=== PATIENT | female | born 1960 | race Caucasian/White ===

== ENCOUNTER 2018-09-05 17:14 | Inpatient (IN) | payer OTHER ==
[~2018-09-05] VITALS: Ht 160 cm; Wt 45.6 kg
[~2018-09-05 17:14] MED LIST: ABILIFY30 MG PO; CIPRO250 M1 PO; KEFLEX500 MG PO; NEURONTIN 300300 M1 PO; NOHOMEMEDICATIONS; REMERON30 MG PO; SILVADENE20 GM TP; TUSNEL LIQUID3840 ML PO; VENTOLIN HFA 1818 GM INH; WELLBUTRIN 100100 MG NG
[2018-09-05 18:57] LABS: ABSOLUTE NEUTROPHILS 7.9 thou/uL (1.4-8.2); BASOPHILS 0.6 % (0.0-2.0); HEMOGLOBIN 13.9 gm/dL (12.0-15.0); LYMPHOCYTES 20.8 % (24.0-44.0); MCH 30.4 pg (26.0-34.0); MCHC 33.8 g/dL (28.0-37.0); MCV 90.1 fL (80.0-100.0); MONOCYTES 11.2 % (1.0-8.0); PLATELET COUNT 352 thou/uL (150-400); POLYS 65.4 % (36.0-66.0); RBC 4.56 mil/uL (4.20-5.00); RDW 13.3 % (10.5-14.5)
[2018-09-05 19:03] LABS: URINE BLOOD TRACE (Negative); URINE CLARITY CLEAR; URINE COLOR YELLOW; URINE GLUCOSE-RANDOM* NEGATIVE (Negative); URINE KETONES 3+ (Negative); URINE LEUKOCYTES 1+ (Negative); URINE NITRITE NEGATIVE (Negative); URINE PROTEIN (DIPSTICK) TRACE (Negative)
[2018-09-05 19:05] LABS: ICTOTEST (BILI CONFIRMATORY) Negative (Negative); URINE BILIRUBIN NEGATIVE (Negative)
[2018-09-05 19:11] LABS: AMP/METHAMP Negative (Negative); BARBITURATES Negative (Negative); BENZODIAZEPINES Negative (Negative); COCAINE Negative (Negative); METHADONE Negative (Negative); OPIATES Negative (Negative); PCP Negative (Negative)
[2018-09-05 19:13] LABS: ALBUMIN 3.7 g/dL (3.4-5.0); ANION GAP 12 mmol/L (7-16); BUN 19 mg/dL (7-18); CALCIUM 9.3 mg/dL (8.5-10.1); CHLORIDE 99 mmol/L (98-107); CO2 25 mmol/L (21-32); CREATININE 0.9 mg/dL (0.6-1.0); GLUCOSE 98 mg/dL (74-106); SALICYLATE < 2.8 mg/dL (2.8-20.0); SGOT 18 U/L (15-37); SGPT 19 U/L (30-65); SODIUM 136 mmol/L (136-145); TOTAL BILIRUBIN 0.6 mg/dL (<0.1-1.0); TOTAL PROTEIN 7.6 g/dL (6.4-8.2)
[2018-09-05 19:13] LABS: BACTERIA None Seen /HPF (None Seen); CASTS None Seen /LPF (None Seen); CRYSTALS None Seen /LPF (None Seen); SQUAMOUS 0-3 Few /LPF (0-3); URINE RBC 3-10 Few /HPF (0-2); URINE WBC >25 Many /HPF (0-5)
[2018-09-05 19:22] LABS: POTASSIUM 2.9 mmol/L (3.5-5.1)
[2018-09-05 20:30] VITALS: BP 102/45
[2018-09-05 22:12] LABS: TSH 0.743 uIU/mL (0.358-3.740)
--- NOTE | 2018-09-05 22:12 | NUR ---
ADMIT: ED ADMIT FROM [facility]. PHYSICALLY COMBATIVE WITH STAFF AND RESIDENTS, KICKING, YELLING, HITTING, CURSING. HX SI, DEMENTIA, DEPRESSION, ANXIETY, FIBROMYALGIA, GLAUCOMA, ETOH AND MARIJUANA USE. DPOA ENACTED BY AND GAVE VERBAL CONSENT. PT HAS CONFUSION. PT WAS NONCOMPLIANT AND AGGRESSIVE IN ED, IM INJECTION GEODON GIVEN, SECURITY PRESENT DURING CARES. PT RECEIVED PO POTASSIUM R/T LOW LEVEL 2.9. UPON ARRIVAL TO UNIT PT ANXIOUS, COOPERATIVE, REQUESTED FOOD AND PROVIDED. DENIES SI/HI. DR BALDWIN CALLED FOR ORDER CLARIFICATION. HOSPITALIST NOTIFIED OF ADMIT. PT ORIENTED TO ROOM. PT REFUSED SKIN CHECK BUT DENIED ANY SKIN BREAKDOWN. WELCOME PACKET PROVIDED TO PT. PT STATED SHE WOULD LIKE TO MOVE TO [facility] TO BE WITH FAMILY. PT EDUCATED TO CALL FOR ASSISTANCE WITH AMBULATION SINCE RECEIVED MEDICATION, PT REPORTS SHE IS INDEPENDENT WITH AMBULATION. MANY PT BELONGINGS IN LOCKER.
[2018-09-06] MEDS ORDERED: ACETAZOLAMIDE500 MG PO (02:48)
[2018-09-06] MEDS ORDERED: ARICEPT 5 MG TAB5 MG PO (02:49)
[2018-09-06] MEDS ORDERED: ALPHAGAN P5 ML (02:49)
[2018-09-06] MEDS ORDERED: COSOPT PF EYE1 EACH OP (02:50)
[2018-09-06] MEDS ORDERED: PROZAC20 MG PO (02:51)
[2018-09-06] MEDS ORDERED: XALATAN2.5 ML OPHTHALMIC (02:51)
[2018-09-06] MEDS ORDERED: PREDNISOLONE ACE5 ML OPHTHALMIC (02:52)
[2018-09-06] MEDS ORDERED: VITAMIN B-1100 M1 PO (02:53)
[2018-09-06] MEDS ORDERED: VITAMIN D5000 UNIT PO (02:54)
[2018-09-06] MEDS ORDERED: TYLENOL325 MG PO (02:54)
[2018-09-06] MEDS ORDERED: IBUPROFEN 400400 M2 PO (02:55)
[2018-09-06] MEDS ORDERED: VISTARIL 25 MG25 M1 PO (02:55)
[2018-09-06] MEDS ORDERED: MELATONIN3 MG PO (02:56)
[2018-09-06 07:46] VITALS: BP 95/48
--- NOTE | 2018-09-06 09:18 | NUR ---
ASSUMED CARE AT 0700 THIS MORNING. PT. REMAINED IN BED, REFUSING TO GET UP FOR BREAKFAST. WHEN THIS RUBBER COVERING MACHINE OPERATOR ATTEMPTED TO GIVE THE PT. MEDICATIONS SHE SAID, " THIS IS BULLSHIT, IM NOT TAKING NONE OF THE CRAP!". SHE THEN LAYED DOWN AND WENT BACK TO SLEEP.
[2018-09-06 10:24] VITALS: BP 95/48
--- NOTE | 2018-09-06 16:55 | NUR ---
SW schedule family meeting with pt friend on September.
--- NOTE | 2018-09-06 16:58 | EKG ---
[place] [address] [employer] [employer] [address] ELECTROCARDIOGRAM REPORT Name: TALHA AMARO Room #: 52- ADM IN M.R.#: [id number] ������������������ Admission: 09/05/18 ������������������ Attend Phys: Jacinto Diaz DO Discharge: ������������������ Date of : 56 Report #: [id number] ����������������������������������������������������������������� [id number] THIS REPORT FOR: //name// [facility] Test Date: 2018-09-06 Test Time: 09:34:31 Pat Name: TALHA AMARO Department: Room: [facility] Gender: F Top Edge Beveler: Emi ROBLEDO : 1960 Requested By: Jacinto Diaz Order Number: [id number] MD: Henrry Frazier Measurements Intervals [place] Rate: 71 P: 36 OR: 108 QRS: 52 QRSD: 88 T: 58 QT: 449 QTc: 488 Interpretive Statements Sinus rhythm Short OR interval Nonspecific ST and T wave abnormality Borderline prolonged QT interval No previous ECG available for comparison Electronically Signed On 09-06-2018 16:58:09 CDT by Henrry Frazier [email or web address] ��������������������������������������������� <ELECTRONICALLY SIGNED> ���������������������������������������� By: Henrry Frazier MD, [facility] ��������������������������������������������� 09/06/18 1658 Henrry Frazier MD, [facility] /EPI
[2018-09-06 19:35] VITALS: BP 111/51
[2018-09-06 20:00] VITALS: BP 111/51
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
--- NOTE | 2018-09-06 21:48 | NUR ---
Patient sleeping in bed upon start of shift. Patient agitated and irritable. Patient alert and oriented to person only. When asked location, time, situation, she would yell "no" at this nurse. Patient lethargic but able to wake with verbal and tactile stimuli. Patient allowed nurse to complete assessment. Any question that was asked, patient would yell "no". Patient did curse for nurse to leave her room. Patient was presented with PO medications. Patient educated on medication and use. Patient took pills one at a time whole. Patient was frustrated, but did take them. Denied pain or discomfort. Patient asked if she wanted her eye drops Latanoprost, for her glaucoma. Patient stated "no, I wish you would just fucking leave". Bed is in lowest position, yellow non-skid socks worn. 12 minute checks being completed.
[2018-09-07 06:26] LABS: HEMATOCRIT 40.9 % (37.0-47.0); HEMOGLOBIN 13.4 gm/dL (12.0-15.0); MCH 29.8 pg (26.0-34.0); MCHC 32.6 g/dL (28.0-37.0); MCV 91.3 fL (80.0-100.0); RBC 4.48 mil/uL (4.20-5.00); RDW 13.8 % (10.5-14.5); WBC 9.8 thou/uL (4.0-11.0)
[2018-09-07 06:55] LABS: CALCIUM 9.2 mg/dL (8.5-10.1); CREATININE 0.7 mg/dL (0.6-1.0); MAGNESIUM 1.9 mg/dL (1.8-2.4); POTASSIUM 3.5 mmol/L (3.5-5.1)
[2018-09-07 07:37] VITALS: BP 110/47
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
--- NOTE | 2018-09-07 16:07 | NUR ---
WITHDRAWN TO ROOM THIS AM-REFUSES TO COME OUT FOR BREAKFAST DESPITE MULTIPLE PROMPTS -STATING "I NEED TO SLEEP" OR "I DON'T FEEL WELL" OR WILL STATE SHE IS COMING AND THEN NOT GET UP. DID TAKE AM MEDICATIONS PO,INITALLY REFUSED EYE DROPS BUT LATER DID ALLOW-ROOM LOCK OUT ORDERED BY MD AT 1100 AND AT 1130 INFORMED OF THIS- DID RELUCTANTLY [facility]LOW STAFF TO ASSIST IN AMBULATING TO DAYROOM. ATE LUNCH,ATTENDED GROUPS-LIMITED VERBAL RESPONSES. LABILE MOOD INITALLY SHE WAS SMILING AND MAKING JOKES AT 1400 IRRITABLE,SARCASTIC AND REFUSING TO PARTICIPATE. DOES REPORT LEG PAIN RATED A 7 ON 1-10 SCALE-STATES HAS DAILY PAIN R/T FIBROMYALGIA. IBUPROFEN 400MG GIVEN PO PRN AT 0900 FOR ABOVE REPORTED,REPORTS LITTLE RESPONSE TO IBUFROFEN -TYLENOL 625MG GIVEN PO PRN AT 1300 FOR LEG PAIN RATED AN 8 ON 1-10 SCALE. AGAIN REPORTS NO RESPONSE-MD NOTIFIED AND ORDERS RECEIVED FOR NEURONTIN.
[2018-09-07 19:36] VITALS: BP 93/59
--- NOTE | 2018-09-07 20:31 | NUR ---
PT ASKED IF NURSE NEW PLAN REGARDING LOS. PT STATED HER INTENTION IS TO LIVE WITH A FRIEND AND THEN MOVE TO [facility]. DISCUSSED PT NEEDING TO HAVE A CONVERSATION [facility] TREATMENT TEAM REGARDING EXPECTED BEHAVIORS IN REGARDS TO NOT HARMING SELF OR OTHERS. PT STATED SHE IS AN ADULT AND THAT IS HER BUSINESS. PT DID NOT HAVE EYE CONTACT WITH THE ABOVE CONVERSATION. PT DID HAVE EYE CONTACT WITH CONVERSATION RE MEDICATIONS AND THERE PURPOSE AND HS SNACK. PT WAS IN DAY ROOM UNTIL 1930, THEN SHE HAS BEEN IN HER BED READING A PUZZLE BOOK.
--- NOTE | 2018-09-08 09:09 | NUR ---
ASSUMED PATIENT CARE AT 0700, PATIENT STILL IN BED AT THAT TIME. AWAKENED BY THIS NURSE, WHO RESPONDED THAT SHE DID NOT EAT BREAKFAST. AGREED THAT SHE WOULD LIKE COFFEE, SHORT TIME LATER DRESSED SELF AND PRESNETED TO DR FOR BREAKFAST. IRRITABLE MOOD, ATTENDING GROUP AT THIS TIME. COMPLIANT WITH MEDICATIONS.
--- NOTE | 2018-09-08 16:04 | NUR ---
PATIENT ASKS REPETITIVE QUESTIONS DURING 1:1 SESSION WITH THIS NURSE, i.e., WHY AM I HERE, WHO PLACED ME HERE, IS THERE A "4 DAY HOLD." ALSO QUESTIONED DR. BALDWIN AND ISABELLE Eastman. PATIENT DOES NOT ACCEPT RESPONSES FROM STAFF, INSTEAD VERBALIZES IRRITATED RESPONSE. SITTING IN DR, ALTERNATELY WORKING ON CROSSWORD PUZZLES AND WATCHING T.V. CONTINUE TO MONITOR, OFFER SUPPORT AND ENCOURAGEMENT.
[2018-09-08 18:14] VITALS: BP 122/74
--- NOTE | 2018-09-08 20:54 | NUR ---
NURSES NOTE - ASSUMED CARE AT APPROXIMATELY 1900, PATIENT WAS IRRITABLE AND AGITATED DURING BEGINNING OF SHIFT. SHE REPEATEDLY ASKED SEVERAL TIMES WHY SHE WAS ADMITTED AND WHEN SHE WAS GOING TO DISCHARGE FROM UNIT AND WHAT WAS WRITTEN ABOUT HER IN HER MEDICAL RECORD AND SHE DESERVES THE RIGHT TO SEE IT.
[2018-09-09 07:20] VITALS: BP 123/53
--- NOTE | 2018-09-09 13:10 | NUR ---
PATIENT HAS BEEN UP ON UNIT. APPETITE GOOD. LABILE AT TIMES - MEDICATION COMPLIANT. DENIES ANY S/I OR H/I OR HALLUCINATIONS. RELUCTANT AND SUSPICIOUS OF MEDICATIONS. AFFECT BLUNTED AT TIMES AND MOOD WITHDRAWN.
[2018-09-09 19:05] VITALS: BP 100/52
--- NOTE | 2018-09-09 20:08 | NUR ---
ASSUMED CARE @ 19:00, SITTING AT A TABLE IN DAYROOM, COLORING ON ADULT COLORING BOOK PAGES. A&OX3 CONFUSED REGARDING REASON FOR HOSPITALIZATION, ASKING REPEATEDLY TO BE DISCHARGED. HRRR, LUNGS DIMINISHED, ABD SOUNDS NORMOACTIVE X 4 Q REPORTS BM YESTERDAY. WILL CONTINUE TO MONITOR.
--- NOTE | 2018-09-09 21:26 | NUR ---
PT ACCEPTED 2100 MEDICATIONS WITHOUT ANY APARENT PROBLEM, ALL THE WHILE REPORTING THAT THE ONLY PILLS THAT SHE WANTS TO TAKE IS ALCOHOL AND DRUG ABUSE FOR FUN. WANTS TO CONTINUE DRINKING COFFEE ALL NIGHT. OFFERED EDUCATION REGARDING MELATONIN FOR SLEEP. WILL CONTINUE TO MONITOR Q 12 MINUTE FOR PT SAFETY.
[2018-09-10 02:44] VITALS: BP 100/52
--- NOTE | 2018-09-10 06:04 | NUR ---
SLEPT WELL, TOTAL OF 7.8 HOURS SLEEP.
[2018-09-10 07:00] VITALS: BP 118/72
[2018-09-10 07:30] VITALS: BP 118/72
--- NOTE | 2018-09-10 08:52 | NUR ---
PT AWAKE DRINKING COFFEE. PT IN POSITIVE SPIRITS TODAY. PT LUNGS CLEAR. PT COMPLIANT WITH TAKING MEDS. PT STATED THAT IT DOESN'T MATTER SHE WON'T TAKE THESE MEDS WHEN SHE GETS OUT, SO WHY GO THROUGH WITHDRAWL. PT UP AD MONALISA. PT STATED THAT SHE HAS PAIN ALL OVER OF 3 ON 1-10 SCALE FROM FIBROMYALGIA.
--- NOTE | 2018-09-10 10:00 | NUR ---
SITTING WITH PATIENT WITH A PUZZLE. PT STATED SHE DRINKS IN ORDER TO HELP WITH THE PAIN DUE TO THE FIBROMYALGIA AND SHE LIKES THE TASTE OF RED WINE.
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
[2018-09-10 20:00] VITALS: BP 106/54
--- NOTE | 2018-09-11 02:27 | NUR ---
Assumed care of patient at 1900: Patient sitting in day room upon start of shift. Patient being intrusive and disrespectful to another patient. Patient required re-direction x2. Patient ate snack. Took medications whole without difficulty. Patient asked what each medication was, what it was for, side effects, etc. Patient alert and oriented x4. Patient denies SI/HI/AH/VH. Patient had difficulty going to sleep this shift. Patient offered Melatonin PRN. Patient made the statemtent that all the medications provided to her are placebos, her mom had dementia so she knows they are just placebos. Patient declined the Melatonin. Patient did report pain to her bilateral lower extremities rated 7/10. Patient was offered PRN Tylenol. Patient accepted and took Tylenol without difficulty. At follow up, patient reported that her pain was rated the same and the Tylenol was not helpful. Patient then asked if she could have something with codeine in it. Patient was asked what other medication has been helpful in managing her pain. Patient stated that plain Aspirin helps her pain more than Tylenol. Call placed to MARIBETH Kramer. MARIBETH Kramer, had asked if patient would be interested in receiving a dose of IM Toradol. Patient was asked and she stated that she just wanted Aspirin, she didn't know what Toradol was. Order obtained for Aspirin 81mg po 1x dose. Patient argumentative with staff. Patient stated that she was going to be signing out AMA. It was explained that her DPOA signed her admission paperwork. Patient continued to argue. Patient sarcastic, condescending to others. Patient then stated she was hungry. Patient provided sandwich, chips, crackers and ate 100%. Patient able to lay down and rest quietly after eating fairly large snack. Patient asleep at follow up after receiving PRN Aspirin.
[2018-09-11 07:40] VITALS: BP 117/51
--- NOTE | 2018-09-11 10:08 | NUR ---
Date of Admission: 09/05/18 Date of Activity Therapy Assessment:09/08/2018 Activity Goal:Pt will attend two groups per day. Initial Goal:Pt will participate in two Recreation Therapy groups per day, until discharge. Weekly progress towards goal:Pt did not achieve goal. Group participation level: Minimal Behaviors observed: Pt is obsevered being rude and demanding to her peers. Pt talked down to peers, at times. Pt struggles with appropriate social skill in the milieu. Pt becomes distracted by the milieu environment during groups and 1:1 sessions. Pt doesn't appear to enjoy groups but will sit passively, when encouraged. Pt is irratatable towards staff. Plan: No change towards goal
--- NOTE | 2018-09-11 10:57 | NUR ---
SARCASTIC AND IRRITABLE THIS AM. DURING FREE TIME ASKED ABOUT GETTING REMOTE TO CHANGE TV CHANNEL-INSTRUCTED NOT TO CHOOSE ANYTHING TO BLOODY, INTENSE OR SCARY IN RESPECT OF MILLEU AND PEERS WITH A/V HALLUCINATIONS/PSYCHOSIS ETC. TALHA IMMEDIATLY PUT ON ALIENS AND WAS RESISITVE AND SULLEN WHEN ASKED TO RECONSIDER STATING "I WILL TALK TO ADMINISTRATION ABOUT THAT"
[2018-09-11 19:17] VITALS: BP 111/60
--- NOTE | 2018-09-11 22:56 | NUR ---
Patient alert and oriented x3, confusion noted on situation. Patient intrusive and sarcastic with staff. Patient antagonizing another peer this shift. Required frequent re-direction. Patient is easily agitated and irritable. Patient poses a question and argument for anything that happened this evening. Patient took medications whole without difficulty. Patient asked multiple questions on medication and education provided. Patient ate 100% snack provided then requested more to eat at approximately 2200. Patient reports chronic pain rated 6/10 to her arms and legs, aching/dull, due to fibromyalgia. Patient stated it has been "a good day for pain". PRN medication offered. Patient declined and stated she was feeling "pretty good". Patient reported that she is concerned about where she is going to live, housing, relationships and moving back to [place]. Patient went to bed approximately 2300. Sitting in her room quietly at this time.
[2018-09-12 07:20] VITALS: BP 144/61
--- NOTE | 2018-09-12 10:30 | NUR ---
Assess due to low BMI 17.8. Admit to H unit for aggitation and hypokalemia. K now wnl. On vitamin D and thiamine. Initial wt reported as 120 lb, however pt states her usual wt is 99 lb; current wt is 100 lb. No wasting is apparent. Ambulates the halls. Eating 100% of meals. Weigh weekly. Low nutrition risk
--- NOTE | 2018-09-12 11:29 | NUR ---
FULL RANGE AFFECT SO FAR THIS AM-VISIBKE IN [facility]-ATTENDING GROUP AND OFFERS FEEDBACK WITH MINIMAL PROMPTING. SUPERFICIAL,SLIGHTLY GUARDED DURING 1;1 STATING"WHY DO YOU HAVE TO ASKE THESE QUESTIONS EVERYDAY ISN'T IT WRITTEN IN MY CHART" SOME PSYCHOMOTOR AGITATIOIN NOTED IN FORM OF REPEATDLTY TAPPING FOOD,FREQUENT POSITION CHANGES- STAYS ON TASK FOR APPROX 5-10 MINUTES BEFORE MOVING ON TO NEW ACTIVITY. OCCASSIONAL NEGATIVE COMMENT RE UNIT RULES/REGULATIONS BUT NO ACUTE VERBAL/PHYSICAL AGGRESSION/AGITATION SO FAR THIS SHIFT
--- NOTE | 2018-09-12 11:58 | NUR ---
JULIAN sent d/c documentation to [facility]. JULIAN notified the NF that pt will be d/c on September 13, 2018. JULIAN will contact Esperanza to [facility] to confirm to recieve documentation. JULIAN will follow-up with pt upon d/c.
--- NOTE | 2018-09-12 16:24 | NUR ---
JULIAN left a voicemail with Esperanza from [facility]. JULIAN provided contact information, and requested a call back. JULIAN will follow-up with the NF on tomorrow.
[2018-09-12 19:30] VITALS: BP 125/61
[2018-09-12 21:24] VITALS: BP 125/61
[2018-09-13 08:58] VITALS: BP 128/89
--- NOTE | 2018-09-13 09:02 | NUR ---
JULIAN spoke with Ro at [facility]. Ro mention that she will be setting up transportation at 11:00am. Ro mention that she will return call to for confirmation.
--- NOTE | 2018-09-13 12:04 | NUR ---
ASSUMED PATIENT CARE AT 0715. PATIENT UP FOR BREAKFAST, ATE 100% OF BREAKFAST. PARTIPATING IN GROUP; NO ISSUES WITH MEMORY DISAPLAYED TO DATE THIS SHIFT. DISCHARGE PLANS FOR TODAY TO FACILITY PRIOR TO ADMISSION--[facility].
--- NOTE | 2018-09-13 12:17 | NUR ---
Patient Name: TALHA AMARO Admission Date: 09/05/18 DISCHARGE PLAN: Pt will be d/c to NF. Care Assessment: Pt was assessed by Dr. Diaz, and diagnosed with Major Neurocognitive Disorder. Level II Assessment: None Transportation: Pt will be transported by [facility]. Special Instructions/Notes: Pt will need to be place in a NF. DISCHARGE TO FACILITY: Nursing Facility Facility: [facility]. Fax: Address: [address] [place] [id number] Contact Name: Madalyn PCP: JAZMINE doctor Psychiatrist: JAZMINE Psychiatrist
[2018-09-13] MEDS ORDERED: ZYPREXA 5 MG TAB5 M2 PO (13:12)
[2018-09-13] MEDS ORDERED: PROZAC 10 MG CA10 MG PO (13:12)
[2018-09-13] MEDS ORDERED: BRIMONIDINE TART5 ML OPHTHALMIC (13:14)
[2018-09-13] MEDS ORDERED: AZOPT OPHTH1 %/10 M1 OPHTHALMIC (13:15)
--- NOTE | 2018-09-13 14:35 | NUR ---
PATIENT PICKED UP BY [facility] AT THIS TIME: 1435. ACCOMPANIED OUT BY ENDS BREAKAGE CLERK AND DR. BALDWIN TO TRANSPORT VEHICLE. NURSING FROM [facility] HAS NOT RETURNED CALL FOR REPORT AT THE TIME OF DISCHARGE.
--- NOTE | 2018-09-14 09:44 | D ---
[facility] [address] [address] DISCHARGE SUMMARY Name: TALHA AMARO Room #: 521B-B DIS IN M.R.#: [id number] Admission: 09/05/18 ������������������ Attend Phys: Jacinto Diaz DO Discharge: 09/13/18 ������������������ Date of : 56 Report #: [id number] THIS REPORT FOR: //name// CC: Jacinto Diaz Sin Akkulugari DATE OF SERVICE: 09/13/2018 ATTENDING PHYSICIAN: Jacinto Diaz DO METAL CONTAINER MAKER AT THE TIME OF DISCHARGE: Rufus Murguia M.D. DISCHARGE DIAGNOSES: As follows: 1. Major neurocognitive disorder, likely due to multiple etiologies with behavioral disturbance, improved. 2. Substance use disorder for alcohol, severe, historic. 3. Medical comorbidities were quite a few and include: a. Left visual eye deficits. b. History of glaucoma, cannot exclude macular degeneration. The patient will be given an appointment at the [facility]. c. Fibromyalgia, by history. DISCHARGE PLAN: Discharged to the [facility] facility. ACTIVITY LEVEL: As tolerated, will require 24/7 care. Absolutely no alcohol or illicit drugs. The patient is a smoker. Facility should be advised that the patient's smoking will decrease the effective dose of the olanzapine that the patient is getting and the patient's DPOA, Mr. Mcgraw, is aware of that. DISCHARGE MEDICATIONS: Fluoxetine 10 mg p.o. daily for depression, this was reduced from the dose on admission; olanzapine 10 mg p.o. b.i.d. for mood stabilization; brimonidine tartrate 5 mL drops 1 drop t.i.d. to affected eye; brinzolamide ophthalmic one drop t.i.d. to affected eye; donepezil 10 mg p.o. at bedtime for cognitive enhancement continues; latanoprost 1 drop ophthalmic at bedtime for glaucoma; cholecalciferol 50,000 units weekly; ibuprofen 400 q. 6 hours p.r.n. for pain 1-3; melatonin 3 mg p.o. at bedtime p.r.n. for insomnia. The patient's general medical and psychiatric care will be handled at the [facility] facility. LABORATORY THIS ADMISSION: Hematology done on 09/05/2018 and 09/07/2018, H and H was within normal limits at 13.4, 40.9, white count 9.8, platelet count 311. Chemistries are within normal limits except for a GFR of 85, sodium 143, potassium 3.5, chloride 107, carbon dioxide 25, BUN 16, creatinine 0.7. Urinalysis showed trace blood, 3+ ketones, trace protein. The patient was treated with cephalexin for her UTI. Micro came back with an E. coli-positive [facility] [address] [place] [address] DISCHARGE SUMMARY Name: TALHA AMARO Room #: 521B-B [facility] IN M.R.#: [id number] Admission: 09/05/18 ������������������ Attend Phys: Jacinto Diaz, Discharge: 09/13/18 ������������������ Date of : 56 Report #: [id number] culture that was sensitive to all antibiotics. REASON FOR ADMISSION: The patient was attempting to elope from the facility, and was agitated and irritable. HOSPITAL COURSE: The patient was admitted to the Geriatric Psychiatry Unit and she was started on olanzapine 5 mg b.i.d. Her DPOA was enacted early on. There was quite a bit of confrontation, this did decrease. The patient did permit increasing the olanzapine to 10 mg b.i.d. Fortunately or unfortunately, the olanzapine was quite efficacious for this patient. It has accelerated metabolism with hydrocarbons from cigarettes. Also, in this patient it will be a gradual dose reduction, likely occurring in a nursing facility. I advised her DPOA to be aware of this fact. MUSCULOSKELETAL: Normal gait and station. MENTAL STATUS EXAMINATION: This is a well-developed, well-nourished female, poor dentition, appearing older than stated age. Attention limited. Concentration limited. Speech normal in rate. Thought process is linear and goal directed. Thought content focused on discharge. No psychomotor agitation. No psychomotor retardation. Denied auditory, visual, or tactile hallucinations. Insight limited. Judgment limited. Fund of knowledge below average. Prognosis for this patient is guarded given her limitations of support, history of relapse on alcohol, and her dealing with the effects of it. An EKG was done on 09/05/2018 as a precaution due to antipsychotics, QTC was 48, QT 449, and rate 71, read by Dr. Frazier. ��������������������������������������������� <ELECTRONICALLY SIGNED> ���������������������������������������� By: Jacinto Diaz DO ��������������������������������������������� 09/14/18 0944 [id number] 0010 Jacinto Diaz DO /nt
== END 2018-09-13 14:20 | DRG 884 ==
LOC: ER 17:14 → EROBS 20:10 → SBH 20:10
PROVIDERS: Nurse Practitioner Family; Physician Assistant; ADMIT Psychiatry & Neurology Psychiatry
DX: F01.51 Vascular dementia, unspecified severity, with behavioral disturbance (principal); N39.0 Urinary tract infection, site not specified; F32.9 Major depressive disorder, single episode, unspecified; R45.1 Restlessness and agitation; E87.6 Hypokalemia; F41.9 Anxiety disorder, unspecified; H40.9 Unspecified glaucoma; M79.7 Fibromyalgia; E53.8 Deficiency of other specified B group vitamins; F02.80 Dementia in other diseases classified elsewhere, unspecified severity, without behavioral disturbance, psychotic disturbance, mood disturbance, and anxiety; F10.20 Alcohol dependence, uncomplicated; Z88.1 Allergy status to other antibiotic agents; Z79.899 Other long term (current) drug therapy; Z79.1 Long term (current) use of non-steroidal anti-inflammatories (NSAID); Z71.6 Tobacco abuse counseling; Z59.0 Homelessness
CPT/HCPCS: 10880